=== PATIENT | female | born 1970 | race Hispanic/Latino ===

== ENCOUNTER 2023-06-20 11:11 | Emergency (ER) | payer BC ==
[~2023-06-20] VITALS: Ht 152.4 cm; Wt 69.4 kg
[2023-06-20 11:25] VITALS: BP 131/81; PULSE 86; RESP 16
[2023-06-20] MEDS ORDERED: ACET-2079 PO (14:05)
[2023-06-20] MEDS ORDERED: AMOX1TAB16 PO (14:05)
[2023-06-20] MEDS: ACETAMINOPHEN WITH CODEINE 1 TAB TAB PO ONE (14:30)
[2023-06-20] MEDS: KETOROLAC 30MG VIAL (30MG/ML) IM ONE (14:31)
== END 2023-06-20 14:40 | disposition home or self-care (01) ==
LOC: EDH 11:11
DX: K02.9 Dental caries, unspecified (principal); K08.89 Other specified disorders of teeth and supporting structures; Z90.49 Acquired absence of other specified parts of digestive tract
CPT/HCPCS: 99284; 96372; J1885

== ENCOUNTER 2023-08-27 14:10 | Emergency (ER) | payer OTHER ==
[~2023-08-27] VITALS: Ht 172.7 cm; Wt 64.9 kg
[~2023-08-27 14:10] MED LIST: ACET-2079 PO; AMOX1TAB16 PO; KETO10 PO
[2023-08-27 15:19] VITALS: BP 142/56; PULSE 74; RESP 14; O2SAT 98
[2023-08-27] MEDS: DEXAMETHASONE SOD PHOSPHATE 4 MG/ML 1ML VIAL IM ONE (15:22)
[2023-08-27] MEDS: KETOROLAC 60 MG VIAL (30MG/ML) IM ONE (15:23)
[2023-08-28] MEDS ORDERED: CEPH500B PO (23:37)
== END 2023-08-27 16:12 | disposition home or self-care (01) ==
LOC: EDH 14:10
DX: M13.862 Other specified arthritis, left knee (principal); M13.861 Other specified arthritis, right knee; Z79.899 Other long term (current) drug therapy; Z90.49 Acquired absence of other specified parts of digestive tract; Z98.890 Other specified postprocedural states; Z88.5 Allergy status to narcotic agent
CPT/HCPCS: 99284; 96372 ×2; J1100; J1885

== ENCOUNTER 2023-12-23 13:06 | Emergency (ER) | payer BC ==
[~2023-12-23] VITALS: Ht 152.4 cm; Wt 70.3 kg
[~2023-12-23 13:06] MED LIST changes: +CEPH500B PO
[2023-12-23 13:59] LABS: BASOPHILS # (AUTO) 0.02 K/uL (0.00-0.20); BASOPHILS % (AUTO) 0.3 % (0.0-5.0); EOSINOPHILS # (AUTO) 0.14 K/uL (0.00-0.70); EOSINOPHILS % (AUTO) 1.9 % (0.0-8.0); HEMATOCRIT 42.1 % (36-48); IMMATURE GRANULOCYTE ABSOLUTE 0.02 K/uL (0-1); LYMPHOCYTES # (AUTO) 1.9 K/uL (1.0-4.8); LYMPHOCYTES % (AUTO) 25.7 % (21.0-51.0); MEAN CORPUSCULAR HEMOGLOBIN 30.4 pg (27.0-33.0); MEAN CORPUSCULAR HGB CONC 32.5 g/dL (32.0-36.0); MEAN CORPUSCULAR VOLUME 93.6 fL (79-99); MONOCYTES # (AUTO) 0.5 K/uL (0.1-1.0); MONOCYTES % (AUTO) 6.6 % (3.0-13.0); NEUTROPHILS # (AUTO) 4.8 K/uL (1.8-7.7); NEUTROPHILS % (AUTO) 65.2 % (40.0-77.0); PLATELET COUNT (AUTO) 235 K/uL (130-400); RED CELL DISTRIBUTION WIDTH 13.2 % (11.0-15.5); WHITE BLOOD COUNT (AUTO) 7.4 K/uL (4.8-10.8)
[2023-12-23 14:00] LABS: APPEARANCE,URINE CLEAR (CLEAR); BILIRUBIN,URINE NEGATIVE (NEGATIVE); COLOR,URINE LIGHT-YELLOW (YELLOW); GLUCOSE, URINE (UA) NEGATIVE (NEGATIVE); KETONES,URINE NEGATIVE (NEGATIVE); LEUKOCYTE ESTERASE ,URINE 75 Leu/uL (NEGATIVE); NITRATE,URINE 2+ (NEGATIVE); OCCULT BLOOD,URINE NEGATIVE (NEGATIVE); PH,URINE 5.5 (5.0-8.0); PROTEIN,URINE NEGATIVE (NEGATIVE); UROBILINOGEN,URINE 0.2 mg/dL (0.2-1.0)
[2023-12-23 14:07] LABS: CREATININE 0.8 mg/dL (0.5-1.0); POTASSIUM 3.6 mmol/L (3.5-5.1)
[2023-12-23 14:08] LABS: ADD UA MICROSCOPIC YES
[2023-12-23] MEDS: 0.9%NACL 1000ML 1,000 ML IV ONE (14:10)
[2023-12-23] MEDS: ketOROlac 30MG VIAL (30MG/ML) IVP ONE (14:10)
[2023-12-23 14:11] LABS: MUCUS,URINE RARE LPF (None Seen); SQUAMOUS EPITHELIAL CELL,UR RARE /HPF (0-2); WBC,URINE 26-50 /HPF (0-1)
[2023-12-23] MEDS ORDERED: AMOX1TAB16 PO (15:07)
[2023-12-23] MEDS ORDERED: IBUP-2077 PO (15:07)
[2023-12-23] MEDS ORDERED: PHEN-776 PO (15:07)
[2023-12-23 15:12] VITALS: BP 104/74; PULSE 80; RESP 16; TEMP 98; O2SAT 97
== END 2023-12-23 15:23 | disposition home or self-care (01) ==
LOC: EDH 13:06
DX: N30.01 Acute cystitis with hematuria (principal); R10.32 Left lower quadrant pain; E78.00 Pure hypercholesterolemia, unspecified; M79.7 Fibromyalgia; F41.9 Anxiety disorder, unspecified; F32.A Depression, unspecified; Z88.5 Allergy status to narcotic agent; Z90.49 Acquired absence of other specified parts of digestive tract; Z98.890 Other specified postprocedural states
CPT/HCPCS: 99284; 74176; 96374; 96361; 80048; 83690; 85025; 87086; 81001; 36415; J7030; J1885

== ENCOUNTER 2024-03-03 11:14 | Emergency (ER) | payer BC ==
[~2024-03-03] VITALS: Ht 154.9 cm; Wt 68.9 kg
[~2024-03-03 11:14] MED LIST changes: +IBUP-2077 PO; +PHEN-776 PO
--- NOTE | 2024-03-03 11:29 | ERN ---
ED Note History of Present Illness Stated Complaint: FEVER Chief Complaint: Fever Time Seen by MD: 11:18 Dictation: PATIENT IS A 53-YEAR-OLD FEMALE COMING IN TODAY WITH COMPLAINTS OF FLU-LIKE SYMPTOMS TO INCLUDE GENERALIZED BODY ACHES, MALAISE LOW-GRADE FEVER CHILLS FOR THE LAST TWO DAYS. NO NAUSEA VOMITING NO LOSS OF TASTE OR SMELL STATES SHE DOES NOT HAVE A COUGH. SHE STATES SHE STARTED TAKEN TYLENOL YESTERDAY. STATES HER PRIMARY CARE DOCTOR IS [facility] HOWEVER THEY CHOSE TO COME TO THE EMERGENCY ROOM TODAY. NO CHEST PAIN NO CHANGE IN URINATION Allergies: Coded Allergies: codeine (Unverified Allergy, Unknown, 08/27/23) Home Meds Active Scripts Phenazopyridine HCl (Pyridium) 200 Mg Tablet, 200 MG PO TID for painful urination for 5 Days, #15 TAB 0 Refills Prov:AGUSTIN BURROUGHS NP 12/23/23 Amoxicillin/Potassium Clav (Amox Tr-K Clv 875-125 mg Tab) 875 Mg-125 Mg Tablet, 1 EACH PO BID for 7 Days, #14 TAB 0 Refills Prov:AGUSTIN BURROUGHS NP 12/23/23 Ibuprofen (Ibuprofen 800 mg Tab) 800 Mg Tab, 800 MG PO Q8H PRN for fever or pain, #30 TAB 0 Refills Prov:AGUSTIN BURROUGHS NP 12/23/23 Cephalexin Monohydrate (Keflex) 500 Mg Cap, 500 MG PO QID for 7 Days, #28 CAP Prov:ELLIE NESBITT MD 08/28/23 Ketorolac Tromethamine (Toradol) 10 Mg Tab, 10 MG PO QIDP PRN for PAIN, #16 TAB Prov:MARK CHAN 07/22/23 Acetaminophen with Codeine (Acetaminophen-Cod #3 Tablet) 300 Mg-30 Mg Tablet, 1 TAB PO Q4H PRN for PAIN LEVEL 7 TO 10 for 3 Days, #18 TAB Prov:RUBINA HUERTAP 06/20/23 Amoxicillin/Potassium Clav (Amox Tr-K Clv 875-125 mg Tab) 875 Mg-125 Mg Tablet, 1 EACH PO BID for 10 Days, #20 TAB Prov:RUBINA HUERTAP 06/20/23 Past Medical History Past Medical History: Anxiety, Depression, Fibromyalgia, High Cholesterol Surgical History: Cholecystectomy, History: Not Applicable RN Note Reviewed/Agreed w/PFSH: Yes Review of System Dictation CONSTITUTIONAL: NEGATIVE EXCEPT FOR HPI FEVER CHILLS HEAD/FACE: NEGATIVE EXCEPT FOR HPI EENT: NEGATIVE EXCEPT FOR HPI CLEAR RHINITIS WITH SORE THROAT RESPIRATORY: NEGATIVE EXCEPT FOR HPI GASTROINTESTINAL/ABDOMINAL: NEGATIVE EXCEPT FOR HPI GENITOURINARY: NEGATIVE EXCEPT FOR HPI MUSCULOSKELETAL: NEGATIVE EXCEPT FOR HPI MALAISE INTEGUMENTARY: NEGATIVE EXCEPT FOR HPI NEUROLOGICAL/PSYCH: NEGATIVE EXCEPT FOR HPI HEMATOLOGIC/LYMPHATIC: NEGATIVE EXCEPT FOR HPI ALL SYSTEMS NEGATIVE, EXCEPT NOTED ABOVE. 13 POINT REVIEW OF SYSTEMS ASSESSED AND ALL NEGATIVE EXCEPT FOR ABOVE. Physical Exam Dictation VITAL SIGNS REVIEWED GENERAL APPEARANCE: ALERT, ORIENTED X 3, MILD ACUTE DISTRESS, WELL DEVELOPED, NOURISHED. HEAD AND FACE: NON-TRAUMATIC. EYES: PERRL, PINK CONJUNCTIVAS, EYELID NO TRAUMA, ANTERIOR CHAMBER WITH ARCUS SENILIS. EARS: PINNAS INTACT AND NO SIGNS OF TRAUMA OR ERYTHEMA EAR CANALS CLEAR AND NO DISCHARGE TM NO ERYTHEMA NOSE: CLEAR DISCHARGE, NO BLEEDING. OROPHARYNX: MOUTH NORMAL, TONGUE PINK, PHARYNX CLEAR, MODERATE PHARYNGEAL ERYTHEMA, TONSILS NO EXUDATES, NO ABSCESSES NOTED, MUCOUS MEMBRANE MOIST UVULA IS MIDLINE, VOICE IS CLEAR NO SOME TONSILLAR LYMPHADENOPATHY NECK: SUPPLE, NON-TENDER, NO THYROMEGALY, NO MASSES, NO JVD, NO BRUITS BREAST:DEFERRED CHEST:NO TENDERNESS, NO CREPITUS, NO PARADOXICAL MOVEMENT, NO RETRACTIONS LUNGS:CLEAR, WELL-VENTILATED, SYMMETRIC, NO RALES, NO WHEEZING, NO RHONCHI, NO STRIDOR, GOOD BREATH SOUNDS BILATERALLY HEART: REGULAR RATE, REGULAR RHYTHM, NO MURMUR, NO GALLOPS VASCULAR: NO PERIPHERAL EDEMA, ABDOMEN: SOFT, POSITIVE BOWEL SOUNDS, NONDISTENDED, NO GUARDING, NONTENDER, NO REBOUND, NO MASSES NO HEPATOMEGALY, NO SPLENOMEGALY, NO DIAZ'S SIGN, NO HERNIAS. RECTAL: DEFERRED GENITAL: DEFERRED NEUROLOGICAL: NORMAL SPEECH, MOTOR FUNCTION INTACT, SENSORY FUNCTION INTACT MUSCULOSKELETAL: NECK NONTENDER, FULL RANGE OF MOTION, BACK NONTENDER, FULL RANGE OF MOTION, EXTREMITIES: NONTENDER, FULL RANGE OF MOTION SKIN: COLOR PINK, DRY, NO TURGOR, NO RASH, NO LACERATIONS, NO ABRASIONS, NO CONTUSIONS. LYMPHATIC: DEFERRED Results (Laboratory/Radiology) Labs Reviewed?: Yes ED Course ED Course Orders Procedure Category Date Status Time Covid19 (Sars Antigen LAB 03/03/24 Transmitted Rapid) 11:26 Influenza Type A & B, LAB 03/03/24 Transmitted Rapid 11:26 Rapid (Group A Strep) LAB 03/03/24 Transmitted 11:26 Ibuprofen 600 Mg PHA 03/03/24 Transmitted Tablet (Motrin) 11:30 DX & DISP Departure Condition: Stable Referrals: Gale PIERCE MD (PCP) AGUSTIN BURROUGHS NP Mar 03, 2024 11:29
[2024-03-03 13:59] VITALS: TEMP 98.4
[2024-03-03] MEDS: ibuPROFEN 600 MG TABLET PO ONE (13:59)
[2024-03-03 14:20] VITALS: BP 92/67; PULSE 114; RESP 20; TEMP 98.4; O2SAT 100
[2024-03-03 14:40] LABS: RAPID GROUP A STREP negative (NEGATIVE)
[2024-03-03 14:48] LABS: COVID19 (SARS ANTIGEN RAPID) PRESUMPTIVE NEGATIVE (NEGATIVE); INFLUENZA TYPE A Negative For Type A (NEGATIVE); INFLUENZA TYPE B Negative For Type B (NEGATIVE)
== END 2024-03-03 16:14 | disposition left against medical advice (07) ==
LOC: EDH 11:14
DX: R50.9 Fever, unspecified (principal); E78.00 Pure hypercholesterolemia, unspecified; M79.7 Fibromyalgia; F41.9 Anxiety disorder, unspecified; Z88.5 Allergy status to narcotic agent; Z20.822 Contact with and (suspected) exposure to COVID-19; Z90.49 Acquired absence of other specified parts of digestive tract
CPT/HCPCS: 87426; 87804; 87880; 99283

== ENCOUNTER 2024-03-19 19:36 | Emergency (ER) | payer BC ==
[~2024-03-19] VITALS: Ht 152.4 cm; Wt 68.0 kg
--- NOTE | 2024-03-19 20:45 | ERN ---
ED Note History of Present Illness Stated Complaint: BACK PAIN Chief Complaint: Back Pain-No Injury Dictation: This is a 54-year-old female who was diagnosed with fibromyalgia and generalized chronic pain came in today to the emergency room as her pain was worse all over and lower back as well as off and on headache. She was getting steroid shots into the back but they did not help and hence she stopped them. She has been taking Tylenol alternating with ibuprofen at times without significant improvement. No fall no motor weakness no bladder or bowel incontinence. The pain has become worse in the past 2 days warranting an ER visit. No fever chills or rigors. She stated that she is allergic to codeine but she can take pain medicine morphine. She also stated the tramadol does not work for her. Temperature 97.6 pulse 89 respirations 20 blood pressure 109/56 with a pulse oximetry of 98% on room air Her chronic medical problems include hypercholesterolemia, anxiety and depression, fibromyalgias Allergies: Coded Allergies: codeine (Unverified Allergy, Unknown, 08/27/23) Home Meds Active Scripts Phenazopyridine HCl (Pyridium) 200 Mg Tablet, 200 MG PO TID for painful urination for 5 Days, #15 TAB 0 Refills Prov:AGUSTIN BURROUGHS NP 12/23/23 Amoxicillin/Potassium Clav (Amox Tr-K Clv 875-125 mg Tab) 875 Mg-125 Mg Tablet, 1 EACH PO BID for 7 Days, #14 TAB 0 Refills Prov:AGUSTIN BURROUGHS NP 12/23/23 Ibuprofen (Ibuprofen 800 mg Tab) 800 Mg Tab, 800 MG PO Q8H PRN for fever or pain, #30 TAB 0 Refills Prov:AGUSTIN BURROUGHS NP 12/23/23 Cephalexin Monohydrate (Keflex) 500 Mg Cap, 500 MG PO QID for 7 Days, #28 CAP Prov:ELLIE NESBITT MD 08/28/23 Ketorolac Tromethamine (Toradol) 10 Mg Tab, 10 MG PO QIDP PRN for PAIN, #16 TAB Prov:MARK CHAN 07/22/23 Acetaminophen with Codeine (Acetaminophen-Cod #3 Tablet) 300 Mg-30 Mg Tablet, 1 TAB PO Q4H PRN for PAIN LEVEL 7 TO 10 for 3 Days, #18 TAB Prov:RUBINA HUERTA 06/20/23 Amoxicillin/Potassium Clav (Amox Tr-K Clv 875-125 mg Tab) 875 Mg-125 Mg Tablet, 1 EACH PO BID for 10 Days, #20 TAB Prov:RUBINA HUERTA 06/20/23 Past Medical History Past Medical History: Fibromyalgia, High Cholesterol Surgical History: Cholecystectomy Family History: Negative Social History: Negative History: Not Applicable RN Note Reviewed/Agreed w/PFSH: Yes Review of System Dictation Constitutional: Negative for fever,chills, and weight loss Eyes: Negative for injury, pain,redness, and discharge ENT: Negative for injury,pain or swelling Cardiovascular: Negative for chest pain, palpitations, and edema Respiratory: Negative for shortness of breath, cough, and wheezing, Abdomen/GI: Negative for abdominal pain, nausea, vomiting, diarrhea, and constipation Back: Negative for injury and pain : Negative for injury, bleeding and discharge MS/Extremity: Negative for injury and deformity generalized body aches and arthralgias Skin: Negative for rash, and discoloration Neuro: Negative for headache, weakness, numbness, tingling, and seizure Psych: Negative for suicide ideation, homicidal ideation, and hallucinations Initial Vital Sign VS Vital Signs Date Time Temp Pulse Resp B/P (MAP) Pulse Ox O2 Delivery O2 Flow Rate FiO2 03/19/24 20:04 97.5 89 20 109/56 98 Room Air Physical Exam Dictation General: awake, alert, NAD Head/Face: Normocephalic, atraumatic Eyes: PERRL, EOMI, vision at baseline ENT: oral cavity clear, TMs clear, no signs of infection, poor dentition Neck: Trachea midline, supple, no nuchal rigidity Cardiovascular: RRR, normal S1/S2, No MRGs, no JVD Respiratory: CTAB, no respiratory distress, No rales or wheezes Abdomen: Soft, non-tender, non-distended, normal bowel sounds, no guarding or rebound. Skin: Warm, dry, normal turgor, no rash MS/Extremity: Pulses equal, no cyanosis, neurovascular intact, FROM Neuro: COAx4, GCS 15, strength 5/5, CN 2-12 intact, normal cerebellar exam, normal gait, Psych: Normal behavior, mood, and affect normal Extremities-trace edema without any palpable cords, Homans sign is negative Results (Laboratory/Radiology) Laboratory/Radiology Laboratory Tests Test 03/19/24 21:19 Urine Color YELLOW (YELLOW) Urine Appearance CLOUDY (CLEAR) H Urine pH 6.0 (5.0-8.0) Urine Specific [place] 1.023 (1.001-1.031) Urine Protein 10 mg/dL (NEGATIVE) H Urine Glucose (UA) NEGATIVE mg/dL (NEGATIVE) Urine Ketones NEGATIVE mg/dL (NEGATIVE) Urine Occult Blood +- (TRACE) (NEGATIVE) H Urine Nitrate 2+ (NEGATIVE) H Urine Bilirubin NEGATIVE mg/dL (NEGATIVE) Urine Urobilinogen 0.2 mg/dL (0.2-1.0) Urine Leukocyte Esterase 500 Denise/uL (NEGATIVE) H Urine RBC 11-25 /HPF (0-1) H Urine WBC 51-100 /HPF (0-1) H Urine WBC Clumps (Auto) FEW /HPF (0-1) Urine Squamous Epithelial Cells RARE /HPF (0-2) Urine Bacteria FEW /HPF (None Seen) Urine Yeast FEW /HPF (None Seen) Labs Reviewed?: Yes ED Course ED Course Orders Procedure Category Date Status Time Urinalysis Profile LAB 03/19/24 Complete 20:13 Ketorolac PHA 03/19/24 Complete Tromethamine 30mg/Ml 20:30 Cyclobenzaprine Hcl PHA 03/19/24 Complete (Cyclobenzaprine Hcl 20:30 Culture Urine REM[place] 03/19/24 In Process 21:30 Morphine 2mg Syg PHA 03/19/24 Complete (Morphine 2mg Syg) 22:00 Current Medications Medications (Trade) Dose Ordered Sig/Fco Route PRN Reason Start Time Stop Time Status Last Admin Dose Admin Cyclobenzaprine HCl (Cyclobenzaprine HCl) 10 mg ONCE ONCE PO 03/19/24 20:30 03/19/24 20:31 DC 03/19/24 21:13 Ketorolac Tromethamine (toRADol) 30 mg ONCE ONCE IM 03/19/24 20:30 03/19/24 20:31 DC 03/19/24 21:14 Morphine Sulfate (morPHINE 2MG SYG) 2 mg ONCE ONCE IM 03/19/24 22:00 03/19/24 22:01 DC 03/19/24 21:41 Vital Signs Date Time Temp Pulse Resp B/P (MAP) Pulse Ox O2 Delivery O2 Flow Rate FiO2 03/19/24 20:04 97.5 89 20 109/56 98 Room Air We will perform diagnostic labs, and administer medications according to the patient's complaint. Once the results are available, will review and personally interpreted the labs to rule out any acute life-threatening emergency the trach require immediate intervention and treatment. I will then re-evaluate the patient after treatment and diagnostic exams have return to determine whether the patient requires any further testing, can safely be discharged home or need further admission to hospital for additional treatment and evaluation. Upon re-evaluation after the Toradol she stated that she still has the pain and that she could take morphine. She was also requesting Xanax 2 mg a day and I explained to her that for her anxiety and chronic pain she needs to follow up with her primary care physician or get a referral from PCP for pain management. I had a long discussion with her regarding opioid and benzodiazepine abuse over use and complications associated including respiratory depression, arrest and cardiac arrest. She was also warned to not drive any vehicle when she takes sedating medications like opioids and benzodiazepines. She stated that her 1 of her friends is coming to pick her up. Medical Decision Making MDM MDM: Differential diagnosis: Rationale: Tests considered and ordered secondary to shared decision making include: Previous outside records reviewed: Old ER visits. Risk of complication and/or morbidity or mortality of patient management: None Medications-Per medication reconciliation Need for hospitalization: Patient does not meet criteria for hospitalization. Need for emergency major/minor surgery: No There are no social concerns with this patient. Prescription drug management Prescriptions will include symptomatic care Patient's prior external medical records from other ER visits were reviewed by me as indicated. Prior testing and results from previous visits were reviewed. Prior tests were taken into account with medical decision making and resource utilization, independent historian/historians were used to obtain complete medical history. I independently interpreted the test that were performed, results were reviewed by me and considered findings on radiology if ordered. Medical management and examination interpretation discussions were had by me with other qualified healthcare professionals as indicated for the patient's care. Problem List Problem List: (1) Fibromyalgia (2) Chronic pain (3) Arthritic-like pain (4) Dental caries noted on examination DX & DISP Disposition: Discharge Departure Impression: Primary Impression: Arthritic-like pain Additional Impressions: Fibromyalgia, Chronic pain, Dental caries noted on examination Condition: Stable Scripts Zolpidem Tartrate (Ambien) 10 Mg Tablet 1 TAB PO HSPRN PRN for sleep for 5 Days, #5 TAB 0 Refills Prov: SANDY STEELE MD 03/19/24 Additional Instructions: Patient and the caregiver have been informed of all the diagnostic tests and the imaging conducted during the today's visit to the emergency room and has verbalized understanding of the results I have personally reviewed and interpreted all diagnostic exams performed here in the ER today as well as the vital signs documented by the nursing staff. The patient is now being discharged to home and should follow up with the primary care physician or the specialist as directed by the ER staff. Follow-up with primary care provider in 1 to 2 days. Take medications as directed here in the emergency room. Okay to continue home medications unless otherwise discussed during your visit in the emergency room today. Return to your nearest emergency room if symptoms worsen or if there is no improvement. Call 911 if you need immediate assistance. Take Tylenol or Motrin [id number] as needed and if no contraindications are present. Increase oral hydration. A wound culture or urine culture was ordered here in the emergency room department please follow-up with primary care provider and advise them to get repeat ports from our facility. If you had any Bradly wrap/splints that were applied here, please do not remove them until you see your primary care or specialty. Patient already has a scheduled appointment with the neurology per her primary care physician. Referrals: Gale PIERCE MD (PCP) SANDY STEELE MD Mar 19, 2024 20:45
[2024-03-19] MEDS: CYCLOBENZAPRINE HCL 10 MG TABLET PO ONE (21:13)
[2024-03-19] MEDS: ketOROlac 30MG VIAL (30MG/ML) IM ONE (21:14)
[2024-03-19 21:29] LABS: ADD UA MICROSCOPIC YES; APPEARANCE,URINE CLOUDY (CLEAR); BILIRUBIN,URINE NEGATIVE (NEGATIVE); COLOR,URINE YELLOW (YELLOW); GLUCOSE, URINE (UA) NEGATIVE (NEGATIVE); KETONES,URINE NEGATIVE (NEGATIVE); LEUKOCYTE ESTERASE ,URINE 500 Leu/uL (NEGATIVE); NITRATE,URINE 2+ (NEGATIVE); PROTEIN,URINE 10 mg/dL (NEGATIVE); UROBILINOGEN,URINE 0.2 mg/dL (0.2-1.0)
[2024-03-19 21:35] LABS: BACTERIA,URINE FEW /HPF (None Seen); MUCUS,URINE RARE LPF (None Seen); SQUAMOUS EPITHELIAL CELL,UR RARE /HPF (0-2); WBC CLUMP FEW /HPF (0-1); WBC,URINE 51-100 /HPF (0-1); YEAST,URINE BUDDING FEW /HPF (None Seen)
[2024-03-19] MEDS: morPHINE 2 MG SYG IM ONE (21:41)
[2024-03-19] MEDS ORDERED: ZOLP10TA2 PO (22:10)
[2024-03-19 22:14] VITALS: BP 112/62; PULSE 84; RESP 16; TEMP 97.8; O2SAT 98
== END 2024-03-19 22:15 | disposition home or self-care (01) ==
LOC: EDH 19:36
DX: M19.90 Unspecified osteoarthritis, unspecified site (principal); M79.7 Fibromyalgia; G89.29 Other chronic pain; K02.9 Dental caries, unspecified; E78.00 Pure hypercholesterolemia, unspecified; F41.9 Anxiety disorder, unspecified; Z88.5 Allergy status to narcotic agent; Z90.49 Acquired absence of other specified parts of digestive tract; Z79.899 Other long term (current) drug therapy
CPT/HCPCS: 99284; 87086 ×2; 87186; 81001; 96372 ×2; J1885; J2270

== ENCOUNTER 2024-07-20 04:28 | Emergency (ER) | payer SELFPAY ==
[~2024-07-20] VITALS: Ht 152.4 cm; Wt 68.0 kg
[~2024-07-20 04:28] MED LIST changes: +ZOLP-685 PO
--- NOTE | 2024-07-20 04:57 | ERN ---
ED Note History of Present Illness Stated Complaint: EAR PAIN Chief Complaint: Earache Time Seen by MD: 04:50 Dictation: This is a 54-year-old female who was diagnosed with fibromyalgia and generalized chronic pain came in today to the emergency room with complaints of bilateral earaches. She took Advil at 11:00 p.m.. No fevers chills or rigors. Temperature 98.8 pulse 100 respirations 20 blood pressure 137/89 with a pulse oximetry of 98% on room air Her chronic medical problems include hypercholesterolemia, anxiety and depression, fibromyalgia Allergies: Coded Allergies: codeine (Unverified Allergy, Unknown, 08/27/23) Home Meds Active Scripts Zolpidem Tartrate (Ambien) 10 Mg Tablet, 1 TAB PO HSPRN PRN for sleep for 5 Days, #5 TAB 0 Refills Prov:SANDY STEELE MD 03/19/24 Phenazopyridine HCl (Pyridium) 200 Mg Tablet, 200 MG PO TID for painful u rination for 5 Days, #15 TAB 0 Refills Prov:AGUSTIN BURROUGHS NP 12/23/23 Amoxicillin/Potassium Clav (Amox Tr-K Clv 875-125 mg Tab) 875 Mg-125 Mg Tablet, 1 EACH PO BID for 7 Days, #14 TAB 0 Refills Prov:AGUSTIN BURROUGHS NP 12/23/23 Ibuprofen (Ibuprofen 800 mg Tab) 800 Mg Tab, 800 MG PO Q8H PRN for fever or pain, #30 TAB 0 Refills Prov:AGUSTIN BURROUGHS NP 12/23/23 Cephalexin Monohydrate (Keflex) 500 Mg Cap, 500 MG PO QID for 7 Days, #28 CAP Prov:ELLIE NESBITT MD 08/28/23 Ketorolac Tromethamine (Toradol) 10 Mg Tab, 10 MG PO QIDP PRN for PAIN, #16 TAB Prov:MARK CHAN 07/22/23 Acetaminophen with Codeine (Acetaminophen-Cod #3 Tablet) 300 Mg-30 Mg Tablet, 1 TAB PO Q4H PRN for PAIN LEVEL 7 TO 10 for 3 Days, #18 TAB Prov:RUBINA HUERTAP 06/20/23 Amoxicillin/Potassium Clav (Amox Tr-K Clv 875-125 mg Tab) 875 Mg-125 Mg Tablet, 1 EACH PO BID for 10 Days, #20 TAB Prov:RUBINA HUERTA V TUNGSTEN REFINER 06/20/23 Past Medical History Past Medical History: Fibromyalgia, High Cholesterol Surgical History: Cholecystectomy, Family History: Negative Social History: Negative History: Not Applicable RN Note Reviewed/Agreed w/PFSH: Yes Review of System Dictation Constitutional: Negative for fever,chills, and weight loss Eyes: Negative for injury, pain,redness, and discharge ENT: Negative for injury,pain or swelling Cardiovascular: Negative for chest pain, palpitations, and edema Respiratory: Negative for shortness of breath, cough, and wheezing, Abdomen/GI: Negative for abdominal pain, nausea, vomiting, diarrhea, and constipation Back: Negative for injury and pain : Negative for injury, bleeding and discharge MS/Extremity: Negative for injury and deformity Skin: Negative for rash, and discoloration Neuro: Negative for headache, weakness, numbness, tingling, and seizure Psych: Negative for suicide ideation, homicidal ideation, and hallucinations Initial Vital Sign VS Vital Signs Date Time Temp Pulse Resp B/P (MAP) Pulse Ox O2 Delivery O2 Flow Rate FiO2 07/20/24 04:29 98.8 100 20 137/89 98 Room Air 07/20/24 04:55 0 21 Physical Exam Dictation General: awake, alert, NAD Head/Face: Normocephalic, atraumatic Eyes: PERRL, EOMI, vision at baseline ENT: oral cavity clear, TMs clear, no signs of infection .bilateral ear exam is completely normal. No radiating pain from TMJ movements Neck: Trachea midline, supple, no nuchal rigidity Cardiovascular: RRR, normal S1/S2, No MRGs, no JVD Respiratory: CTAB, no respiratory distress, No rales or wheezes Abdomen: Soft, non-tender, non-distended, normal bowel sounds, no guarding or rebound. Skin: Warm, dry, normal turgor, no rash MS/Extremity: Pulses equal, no cyanosis, neurovascular intact, FROM Neuro: COAx4, GCS 15, strength 5/5, CN 2-12 intact, normal cerebellar exam, normal gait, Psych: Normal behavior, mood, and affect normal Extremities-trace edema without any palpable cords, Homans sign is negative ED Course ED Course Orders Procedure Category Date Status Time Ketorolac PHA 07/20/24 In Process Tromethamine 30mg/Ml 05:30 Current Medications Medications (Trade) Dose Ordered Sig/Fco Route PRN Reason Start Time Stop Time Status Last Admin Dose Admin Ketorolac Tromethamine (toRADol) 30 mg ONCE ONCE IM 07/20/24 05:30 07/20/24 05:31 07/20/24 05:14 Vital Signs Date Time Temp Pulse Resp B/P (MAP) Pulse Ox O2 Delivery O2 Flow Rate FiO2 07/20/24 04:55 98.8 79 18 134/78 97 Room Air* 0 21 07/20/24 04:29 98.8 100 20 137/89 98 Room Air Trial of Toradol. I have updated the patient that bilateral ear exam is normal and there is no evidence of any infection ruptured tympanic membrane or any erythema or pus. She needs to follow up with her PCP for chronic pain management Medical Decision Making MDM MDM: Differential diagnosis: Otitis externa, otitis media, impacted cerumen, radiating pain from TMJ, odontogenic pain due to dental caries Rationale: Tests considered and ordered secondary to shared decision making include: Previous outside records reviewed: Old ER visits. Risk of complication and/or morbidity or mortality of patient management: None Medications-Per medication reconciliation Need for hospitalization: Patient does not meet criteria for hospitalization. Need for emergency major/minor surgery: No There are no social concerns with this patient. Prescription drug management Prescriptions will include symptomatic care Patient's prior external medical records from other ER visits were reviewed by me as indicated. Prior testing and results from previous visits were reviewed. Prior tests were taken into account with medical decision making and resource utilization, independent historian/historians were used to obtain complete medical history. I independently interpreted the test that were performed, results were reviewed by me and considered findings on radiology if ordered. Medical management and examination interpretation discussions were had by me with other qualified healthcare professionals as indicated for the patient's care. Problem List Problem List: (1) Earache symptoms in both ears (2) Chronic pain DX & DISP Disposition: Discharge Departure Impression: Primary Impression: Earache symptoms in both ears Condition: Stable Additional Instructions: Patient and the caregiver have been informed of all the diagnostic tests and the imaging conducted during the today's visit to the emergency room and has verbalized understanding of the results I have personally reviewed and interpreted all diagnostic exams performed here in the ER today as well as the vital signs documented by the nursing staff. The patient is now being discharged to home and should follow up with the primary care physician or the specialist as directed by the ER staff. Follow-up with primary care provider in 1 to 2 days. Take medications as directed here in the emergency room. Okay to continue home medications unless otherwise discussed during your visit in the emergency room today. Return to your nearest emergency room if symptoms worsen or if there is no improvement. Call 911 if you need immediate assistance. Take Tylenol or Motrin over-the-c ounter as needed and if no contraindications are present. Increase oral hydration. A wound culture or urine culture was ordered here in the emergency room department please follow-up with primary care provider and advise them to get repeat ports from our facility. If you had any Bradly wrap/splints that were applied here, please do not remove them until you see your primary care or specialty. Referrals: Gale PIERCE MD (PCP) SANDY STEELE MD July 20, 2024 04:57
[2024-07-20] MEDS: ketOROlac 30MG VIAL (30MG/ML) IM ONE (05:14)
[2024-07-20 05:24] VITALS: BP 130/71; PULSE 75; RESP 16; TEMP 98.2; O2SAT 97
== END 2024-07-20 05:28 | disposition home or self-care (01) ==
LOC: EDH 04:28
DX: H92.03 Otalgia, bilateral (principal); E78.00 Pure hypercholesterolemia, unspecified; M79.7 Fibromyalgia; Z88.5 Allergy status to narcotic agent; Z90.49 Acquired absence of other specified parts of digestive tract
CPT/HCPCS: 99283; 96372; J1885